=== PATIENT | male | born 1945 | race Two or more races ===

== ENCOUNTER 2018-08-01 08:14 | Outpatient (CLI) | payer OTHER | END 2018-08-01 08:25 | disposition home or self-care (01) | LOC: MRI 08:14 | DX: I67.89 Other cerebrovascular disease (principal); G31.84 Mild cognitive impairment of uncertain or unknown etiology | CPT/HCPCS: 70551 ==

== ENCOUNTER 2018-11-01 15:51 | Outpatient (CLI) | payer OTHER | END 2018-11-01 19:00 | disposition home or self-care (01) | LOC: RAD 15:51 | DX: M51.36 Other intervertebral disc degeneration, lumbar region (principal) ==

== ENCOUNTER 2023-12-05 08:03 | Outpatient (CLI) | payer OTHER ==
[2023-12-05 09:18] LABS: HEMATOCRIT 44.9 % (39.0-48.0); HEMOGLOBIN 15.6 g/dL (13-16.00); MEAN CELL VOLUME 91.3 fL (80.0-100.00); MEAN CORPUSCULAR HEMOGLOBIN 31.7 pg (27.00-32.0); MEAN CORPUSCULAR HGB CONC 34.7 g/dl (32.0-36.0); PLATELET COUNT 123 K/uL (150-450); RED BLOOD COUNT 4.92 M/uL (4.00-6.00); RED CELL DISTRIBUTION WIDTH 14.1 % (11.5-14.5)
[2023-12-05 09:28] LABS: URINE APPEARANCE Clear; URINE BILIRRUBIN Negative (NEGATIVE); URINE BLOOD Negative; URINE COLOR Yellow; URINE GLUCOSE Negative (NEGATIVE); URINE LEUKOCYTE Negative; URINE NITRATE Negative; URINE PROTEIN Negative (NEGATIVE)
[2023-12-05 09:33] LABS: URINE EPITHELIAL CELLS 1.5 uL (0.0-38.8); URINE RBC 16.6 uL (0.0-20.8)
[2023-12-05 09:34] LABS: INR 1.01; PARTIAL THROMBOPLASTIN TIME 30.7 SECONDS (22.0-34.0); PROTHROMBIN TIME 10.6 SECONDS (9.0-11.5)
[2023-12-05 09:50] LABS: URINE BACTERIA 3.7 uL (0.0-1933)
[2023-12-05 09:51] LABS: URINE CRYSTALS MODERATE /HPF
[2023-12-05 09:53] LABS: ALBUMIN 3.2 gm/dL (3.4-5.0); BILIRUBIN TOTAL 0.48 mg/dL (0.3-1.2); CREATININE SERUM 1.04 mg/dL (0.70-1.30); GFR 69.25; GLOBULINA 3.5 G/DL (2.4-3.5); POTASSIUM 4.19 mEq/L (3.5-5.1); TOTAL PROTEIN 6.7 gm/dL (6.4-8.2)
[2023-12-05 10:24] LABS: COL EPI 69 SECONDS (82-175)
== END 2023-12-05 08:04 | disposition home or self-care (01) ==
LOC: LAB 08:03
PROVIDERS: ATTEND Pain Medicine Interventional Pain Medicine
DX: M54.2 Cervicalgia (principal); D68.9 Coagulation defect, unspecified

== ENCOUNTER 2023-12-29 09:12 | Outpatient (CLI) | payer OTHER | END 2023-12-29 09:20 | disposition home or self-care (01) | LOC: MRI 09:12 | PROVIDERS: ATTEND Pain Medicine Interventional Pain Medicine | DX: M54.2 Cervicalgia (principal) | CPT/HCPCS: 72141 ==

== ENCOUNTER 2024-04-23 07:44 | Outpatient (CLI) | payer OTHER | END 2024-04-23 07:45 | disposition home or self-care (01) | LOC: NUCLEAR 07:44 | PROVIDERS: ATTEND Internal Medicine | DX: D68.69 Other thrombophilia (principal); M79.604 Pain in right leg ==